=== PATIENT | female | born 1945 | race Caucasian/White ===

== ENCOUNTER 2020-11-30 17:49 | Emergency (ER) | payer OTHER, MEDICARE, SELFPAY ==
[2020-11-30 18:04] VITALS: BP 205/71; PULSE 69; RESP 16; TEMP 36.4; O2SAT 100; BMI 27.1
[2020-11-30 20:53] LABS: MANUAL DIFF FLAG NO
[2020-11-30 20:54] LABS: Basophils Absolute Auto 0.1 X10*3/uL (0.0-0.2); Eosinophils Absolute Auto 0.1 X10*3/uL (0.0-0.4); Eosinophils Percent Auto 0.8 % (0-4); Hematocrit 35.4 % (37-47); Hemoglobin 11.3 g/dl (12.0-16.0); Imm Gran Abs Auto 0.01 X10*3/uL (0.00-0.03); Imm Gran Pct Auto 0.1 % (0.0-0.4); Lymphocytes Absolute Auto 2.6 X10*3/uL (1.2-4.9); Lymphocytes Percent Auto 35.3 % (20-40); Mean Corpuscular HGB Conc 31.9 g/dl (31.0-35.0); Mean Corpuscular Hemoglobin 26.2 pg (27.0-33.0); Mean Corpuscular Volume 82.1 fL (80-98); Mean Platelet Volume 8.1 fL (9.4-12.3); Monocytes Absolute Auto 0.4 X10*3/uL (0.1-1.2); Monocytes Percent Auto 5.5 % (2-11); Neutrophils Absolute Auto 4.2 X10*3/uL (2.0-8.3); Neutrophils Percent Auto 57.3 % (45-73); Platelet Count 298 X10*3/uL (160-400); Red Blood Count 4.31 X10*6/uL (4.20-5.50); Red Cell Distribution Width 13.8 % (11.0-16.0); White Blood Count 7.3 X10*3/uL (4.8-10.8)
[2020-11-30 21:18] LABS: Alanine Aminotransferase 22 U/L (0-31); Albumin Level 4.3 g/dL (3.5-5.0); Alkaline Phosphatase 68 U/L (39-117); Anion Gap 15 (12-20); Aspartate Amino Transferase 26 U/L (5-31); Bilirubin Total 0.6 mg/dL (0.0-1.0); Blood Urea Nitrogen 13 mg/dL (9-16); Calcium 9.8 mg/dL (8.4-10.2); Carbon Dioxide 24 mmol/L (22-29); Chloride 105 mmol/L (96-108); Creatinine Clr Calc Pharmacy 47.3; Estimated Glomerular Filt Rate > 60; Glucose Random 97 mg/dL (60-115); Potassium 3.9 mmol/L (3.3-5.1); Sodium 140 mmol/L (135-145); Total Protein 7.3 g/dL (6.5-8.0)
[2020-11-30 21:30] VITALS: BP 168/84; PULSE 89; RESP 16; O2SAT 99
[2020-11-30 22:00] VITALS: BP 178/75; PULSE 70; RESP 16; O2SAT 100
--- NOTE | 2020-11-30 22:36 | ED.GENADULT ---
HPI - General Adult General Chief complaint: General Medical Stated complaint: high bp Time Seen by Provider: 11/30/20 22:23 Source: patient Mode of arrival: ambulatory History of Present Illness HPI narrative: 75-year-old female with a past medical history of hypertension, anxiety visiting from [place] presenting to the ED requesting refill of antihypertensives as waiting on refills from [place] Reports took last dose of Amlodipine 5mg, HCTZ 12.5mg and Losartan 50mg this morning. States took BP today and was elevated 180s-200s, patient was asymptomatic however reports usually not this high. Remains asymptomatic at this time. Denies headache, lightheadedness/dizziness, CP/SOB, numbness/tingling, abdominal pain, nausea/vomiting. Onset (ago): hour(s) Related Data Previous Rx's Medication Instructions Recorded amlodipine 5 mg tablet 5 mg PO DAILY #30 tab 11/30/20 hydrochlorothiazide 12.5 mg tablet 12.5 mg PO DAILY #30 tab 11/30/20 losartan 50 mg tablet 50 mg PO DAILY #30 tab 11/30/20 Allergies Allergy/AdvReac Type Severity Reaction Status Date / Time No Known Allergies Allergy Verified 11/30/20 18:08 Review of Systems Review of Systems: Constitutional: No Fever, No Chills, No Fatigue, No Malaise ENT/Mouth: No Hearing loss, No Ear Pain, No sore throat, No Rhinorrhea, No Swallowing Difficulty Eyes: No Eye Pain, No Vision Changes Cardiovascular: No Chest Pain, No SOB, No Edema, No Palpitations Respiratory: No Cough, No Dyspnea Gastrointestinal: No Nausea, No Vomiting, No Abdominal pain Musculoskeletal: No joint pain Skin: No Skin Lesions, No rash Neuro: No Weakness, No Numbness, No Paresthesias, No Dizziness, No Headache Yes all other systems are reviewed and are negative [facility] Past Medical History Attestation statement: The following information was validated with the patient. Medical History (Updated 11/30/20 @ 22:44 by LORRAINE Mcbride) Anxiety HTN (hypertension) Social History Social History Alcohol intake: never Patient Tobacco Use Status: Never used Tobacco Use of substances other than those prescribed or required for medical reasons: No Advance Directives: No Advance Directives Information Provided: No Physical Exam Vital Signs: Vital Signs: Last Vital Signs Temp 97.6 F 11/30/20 18:04 Pulse 70 08/12/21 22:00 Resp 16 11/30/20 22:00 BP 178/75 H 11/30/20 22:00 Pulse Ox 100 11/30/20 22:00 Body Mass Index 27.1 Const: General: cooperative, healthy appearing, no acute distress, well developed, alert, awake and Physically active Orientation/consciousness: patient oriented x3 Limitations: no limitations HENMT: Head: Yes normal to inspection and Yes atraumatic Ears: hearing grossly normal bilaterally General nose exam: Normal external nose present Face and sinus: Yes normal facial exam Eyes: General: appearance normal, both eyes and all related structures EOM: EOMs intact bilaterally Neck: Neck: Yes normal visual inspection and Yes no meningeal signs Resp: Effort & Inspection: normal respiratory effort Auscultation: clear to auscultation bilaterally, no rales, no rhonchi and no wheezes Cardio: Rate: regular rate Heart sounds: S1 normal heart sound present and S2 normal heart sound present GI: Inspection: Yes normal to inspection Palpation (GI): Soft to palpation and nontender Skin: Rashes: no rashes Wounds: no wounds Neuro: General: patient oriented x3, tone normal, moves all extremities, no meningeal signs and no focal motor deficits Extrem: General: Yes normal to inspection and Yes no pedal edema Course Course Course Narrative: -labs unremarkable > discussed with patient and family at bedside worrisome signs and symptoms and strict return precautions as well as need for compliance with antihypertensive and close monitoring of BP at home. They verbalized understanding feel safe for discharge home Medical Decision Making MDM Narrative Medical decision making narrative: 75-year-old female with a past medical history of hypertension, anxiety visiting from [place] presenting to the ED requesting refill of antihypertensives as waiting on refills from [place] [facility] took last dose of Amlodipine 5mg, HCTZ 12.5mg and Losartan 50mg this morning. On exam mildly hypertensive BP 172/79 without intervention. Patient remains asymptomatic, nontoxic appearing. Will refill home antihypertensives. Discussed worrisome signs and symptoms and strict return precautions. Low concern for hypertensive urgency/emergency Lab Data Result diagrams: 11/30/20 20:46 11/30/20 20:46 Labs: Lab Results 11/30/20 11/30/20 11/30/20 Range/Units 20:46 20:46 20:46 WBC 7.3 (4.8-10.8) X10*3/uL RBC 4.31 (4.20-5.50) X10*6/uL Hgb 11.3 L (12.0-16.0) g/dl Hct 35.4 L (37-47) % MCV 82.1 (80-98) fL MCH 26.2 L (27.0-33.0) pg MCHC 31.9 (31.0-35.0) g/dl RDW 13.8 (11.0-16.0) % Plt Count 298 (160-400) X10*3/uL MPV 8.1 L (9.4-12.3) fL Immature Gran % (Auto) 0.1 (0.0-0.4) % Neut % (Auto) 57.3 (45-73) % Lymph % (Auto) 35.3 (20-40) % Knott % (Auto) 5.5 (2-11) % Eos % (Auto) 0.8 (0-4) % Baso % (Auto) 1.0 (0-2) % Lymph # (Auto) 2.6 (1.2-4.9) X10*3/uL Knott # (Auto) 0.4 (0.1-1.2) X10*3/uL Eos # (Auto) 0.1 (0.0-0.4) X10*3/uL Baso # (Auto) 0.1 (0.0-0.2) X10*3/uL Abs Immat Gran (auto) 0.01 (0.00-0.03) X10*3/uL Absolute Neuts (auto) 4.2 (2.0-8.3) X10*3/uL Absolute Nucleated RBC 0.000 (0.0-0.012) X10*3/uL Nucleated RBC % (auto) 0.0 (0.0-0.2) /100WBC Hold Purple Top SEE NOTE Sodium 140 (135-145) mmol/L Potassium 3.9 (3.3-5.1) mmol/L Chloride 105 (96-108) mmol/L Carbon Dioxide 24 (22-29) mmol/L Anion Gap 15 (12-20) BUN 13 (9-16) mg/dL Creatinine 0.85 (0.5-1.4) mg/dL Estim Creat Clear Calc 47.3 Estimated GFR > 60 Random Glucose 97 (60-115) mg/dL Calcium 9.8 (8.4-10.2) mg/dL Total Bilirubin 0.6 (0.0-1.0) mg/dL AST 26 (5-31) U/L ALT 22 (0-31) U/L Alkaline Phosphatase 68 (39-117) U/L Total Protein 7.3 (6.5-8.0) g/dL Albumin 4.3 (3.5-5.0) g/dL Discharge Plan Discharge Clinical Impression: Medication refill, Hypertension Patient Disposition: Home, Self-Care Instructions: Hypertension (ED), How to Take a Blood Pressure (ED) Additional Instructions: It is important for you to take your blood pressure medication as prescribed at home without missing any doses Continue to monitor her blood pressures closely If they are consistently high, you develop any chest pain, shortness of breath, lightheadedness/dizziness, headache, numbness/tingling or weakness return to the ED immediately You should follow-up with a primary care doctor Es importante que tome erwin medicamentos para la presi?n arterial seg?n lo prescrito en casa sin omitir ninguna dosis. Continuar controlando de cerca lomas presi?n arterial Si son constantemente altos, presenta dolor en el pecho, dificultad para respirar, aturdimiento / mareo, dolor de krysta, entumecimiento / hormigueo o debilidad.Regrese al servicio de urgencias de inmediato. Debe hacer un seguimiento con un m?dico de atenci?n primaria. Prescriptions: New amlodipine 5 mg tablet 5 mg PO DAILY Qty: 30 RF: 0 hydrochlorothiazide 12.5 mg tablet 12.5 mg PO DAILY Qty: 30 RF: 0 losartan 50 mg tablet 50 mg PO DAILY Qty: 30 RF: 0 Referrals: Physician,Nonstaff [Primary Care Provider] - 2 days Print Language: Macedonian
== END 2020-11-30 23:15 | disposition home or self-care (01) ==
PROVIDERS: Emergency Provider Emergency Medicine Emergency Medical Services
DX: I10 Essential (primary) hypertension (principal); Z76.0 Encounter for issue of repeat prescription
CPT/HCPCS: 36415; 80053; 85025; 99283; 99284